=== PATIENT | male | born 1960 | race Caucasian/White ===

== ENCOUNTER 2017-04-16 03:51 | Emergency (ER) | payer OTHER ==
[~2017-04-16] VITALS: Ht 177.8 cm; Wt 132.0 kg
[~2017-04-16 03:51] MED LIST: ASPI81TA82 PO; CLOP75 PO; GLUCTAB PO; GLYB1TAB50 PO; HYDR-2768 PO; LEVEMIR PO; LIPI40TA PO; renexa PO
[2017-04-16 03:59] VITALS: BP 151/76; PULSE 79; RESP 12; TEMP 98.3; O2SAT 97
[2017-04-16] MEDS ORDERED: SODIUM CHLOR 0.9% 1000 ML INJ 1,000 ML IV SCH (04:18)
--- NOTE | 2017-04-16 04:21 | PD ---
HPI Chief Complaint: Flank/Kidney Pain Time Seen by Provider: 04:18 Travel History International Travel<30 days: No Contact w/Intl Traveler<30days: No Traveled to known affect area: No History of Present Illness HPI 57-year-old male with history of diabetes, hypertension, kidney stones, CAD, presents to the ER today because he has had 2 days history of left flank pains which worsened last night at around 2 AM. He states is currently a 4 out of 10. He does not know any exacerbating or alleviating factors. He had noticed some brown urine a few days ago as well. He denies any blood in the urine, fevers, vomiting, or any other symptoms. Modifying Factors: None Associated Signs & Symptoms: Left flank pain Risk Factors: Kidney stone history PFSH Past Medical History High Cholesterol: Yes Coronary Artery Disease: Yes Diabetes: Yes Immunizations Current: No Past Surgical History Cardiac Surgery: Yes (CARDIAC STENT) Coronary Stent: Yes (2008) Social History Alcohol Use: No Tobacco Use: No Substance Use: No Allergies-Medications (Allergen,Severity, Reaction): Coded Allergies: No Known Allergies (Unverified , 04/16/17) Reported Meds & Prescriptions Reported Meds & Active Scripts Active Reported Levemir (Insulin Detemir) Inj 12 Mg PO DAILY [renexa] 500 Mg PO BID Metformin Hcl (Metformin HCl) 500 Mg Tab 500 Mg PO BID Hctz (Hydrochlorothiazide) 25 Mg Tab 25 Mg PO DAILY Glyburide 2.5 Mg Tab 2.5 Mg PO DAILY Plavix (Clopidogrel Bisulfate) 75 Mg Tab 75 Mg PO DAILY Lipitor (Atorvastatin Calcium) 40 Mg Tab 40 Mg PO HS Aspir-81 (Aspirin) 81 Mg Tab 81 Mg PO DAILY Review of Systems Except as stated in HPI: all other systems reviewed are Neg Physical Exam Narrative GENERAL: Well-developed middle age white male patient currently in mild distress. Awake and oriented 3. SKIN: Focused skin assessment warm/dry. HEAD: Atraumatic. Normocephalic. EYES: Pupils equal and round. No scleral icterus. No injection or drainage. ENT: No nasal bleeding or discharge. Mucous membranes pink and moist. NECK: Trachea midline. No JVD. CARDIOVASCULAR: Regular rate and rhythm. No murmur appreciated. RESPIRATORY: No accessory muscle use. Clear to auscultation. Breath sounds equal bilaterally. GASTROINTESTINAL: Abdomen soft, mild left upper quadrant tenderness without guarding or rebound, nondistended. Hepatic and splenic margins not palpable. BACK: No CVA tenderness. No rash. No point tenderness on palpation of the spine. MUSCULOSKELETAL: No obvious deformities. No clubbing. No cyanosis. No edema. NEUROLOGICAL: Awake and alert. No obvious cranial nerve deficits. Motor grossly within normal limits. Normal speech. PSYCHIATRIC: Appropriate mood and affect; insight and judgment normal. Data Data Last Documented VS Vital Signs Date Time Temp Pulse Resp B/P Pulse Ox O2 Delivery O2 Flow Rate FiO2 04/16/17 04:54 69 20 173/75 98 04/16/17 03:59 98.3 Orders Complete Blood Count With Diff (04/16/17 04:18) Comprehensive Metabolic Panel (04/16/17 04:18) Lipase (04/16/17 04:18) Urinalysis - C+S If Indicated (04/16/17 04:18) Ct Abd/Pel W/O Iv Contrast (04/16/17 04:18) Iv Access Insert/Monitor (04/16/17 04:18) Ecg Monitoring (04/16/17 04:18) Oximetry (04/16/17 04:18) Sodium Chlor 0.9% 1000 Ml Inj (Ns 1000 M (04/16/17 04:18) Sodium Chloride 0.9% Flush (Ns Flush) (04/16/17 04:30) Ketorolac Inj (Toradol Inj) (04/16/17 04:30) Urine Culture (04/16/17 04:30) Labs Laboratory Tests Test 04/16/17 04:30 White Blood Count 9.9 TH/MM3 Red Blood Count 4.57 MIL/MM3 Hemoglobin 12.8 GM/DL Hematocrit 38.6 % Mean Corpuscular Volume 84.5 FL Mean Corpuscular Hemoglobin 27.9 PG Mean Corpuscular Hemoglobin 33.0 % Concent Red Cell Distribution Width 13.9 % Platelet Count 200 TH/MM3 Mean Platelet Volume 8.8 FL Neutrophils (%) (Auto) 70.7 % Lymphocytes (%) (Auto) 17.3 % Monocytes (%) (Auto) 10.4 % Eosinophils (%) (Auto) 1.2 % Basophils (%) (Auto) 0.4 % Neutrophils # (Auto) 7.1 TH/MM3 Lymphocytes # (Auto) 1.7 TH/MM3 Monocytes # (Auto) 1.0 TH/MM3 Eosinophils # (Auto) 0.1 TH/MM3 Basophils # (Auto) 0.0 TH/MM3 CBC Comment DIFF FINAL Differential Comment Urine Color CELENA Urine Turbidity CLEAR Urine pH 5.5 Urine Specific [place] 1.027 Urine Protein 30 mg/dL Urine Glucose (UA) 100 mg/dL Urine Ketones NEG mg/dL Urine Occult Blood SMALL Urine Nitrite NEG Urine Bilirubin NEG Urine Leukocyte Esterase NEG Urine RBC 15-19 /hpf Urine WBC 0-2 /hpf Urine Squamous Epithelial 0-5 /hpf Cells Urine Mucus FEW /lpf Microscopic Urinalysis Comment CULTURE INDICATED Sodium Level 139 MEQ/L Potassium Level 3.6 MEQ/L Chloride Level 104 MEQ/L Carbon Dioxide Level 26.8 MEQ/L Anion Gap 8 MEQ/L Blood Urea Nitrogen 17 MG/DL Creatinine 1.40 MG/DL Estimat Glomerular Filtration 52 ML/MIN Rate Random Glucose 160 MG/DL Calcium Level 8.5 MG/DL Total Bilirubin 0.8 MG/DL Aspartate Amino Transf 20 U/L (AST/SGOT) Alanine Aminotransferase 43 U/L (ALT/SGPT) Alkaline Phosphatase 74 U/L Total Protein 7.5 GM/DL Albumin 3.2 GM/DL Lipase 141 U/L MDM Medical Decision Making Medical Screen Exam Complete: Yes Emergency Medical Condition: Yes Medical Record Reviewed: Yes Interpretation(s) Laboratory Tests Test 04/16/17 04:30 Hemoglobin 12.8 GM/DL (13.0-17.0) Hematocrit 38.6 % (39.0-51.0) Neutrophils (%) (Auto) 70.7 % (16.0-70.0) Monocytes (%) (Auto) 10.4 % (0.0-8.0) Monocytes # (Auto) 1.0 TH/MM3 (0-0.9) Urine Color CELENA (YELLW/STRAW) Urine Protein 30 mg/dL (NEG-TRACE) Urine Glucose (UA) 100 mg/dL (NEG) Urine Occult Blood SMALL (NEG) Urine RBC 15-19 /hpf (0-3) Urine Mucus FEW /lpf (OCC) Creatinine 1.40 MG/DL (0.60-1.30) Estimat Glomerular Filtration 52 ML/MIN (>89) Rate Random Glucose 160 MG/DL (74-106) Albumin 3.2 GM/DL (3.4-5.0) Last 24 hours Impressions Abdomen/Pelvis CT 04/16/17 0418 Signed Impressions: Service Date/Time: Sunday, April 16, 2017 04:32 - CONCLUSION: Slight hydronephrosis in the left kidney due to an approximate 7 mm left proximal ureteral stone. Kulwinder Seo MD Differential Diagnosis Left flank painrenal colic versus pancreatitis versus musculoskeletal versus gastritis Narrative Course CAT scan reveals a 7 mm stone at the proximal ureter. Hydronephrosis noted. At this point, case was discussed with Dr. Hoffman who states that the patient can follow-up in his office this week. Patient's pain is fairly controlled at this point on Toradol. Lab work was otherwise unremarkable. My plan would be to release the patient with symptomatic relief or pain and follow-up to urology. Return for any worsening in symptoms as necessary. The plan has been discussed with the patient and he states understanding. Diagnosis Primary Impression: Renal colic on left side Med/Other Pt SpecificInfo: Prescription(s) given Scripts Hydrocodone-Acetaminophen (Lortab)5-325 Mg Tab1-2 Tab PO Q6H PRN (PAIN) #20 TAB Ref 0 Prov:Manpreet Cheema MD 04/16/17 Disposition: 01 DISCHARGE HOME Condition: Stable Manpreet Cheema MD April 16, 2017 04:21
[2017-04-16] MEDS ORDERED: KETOROLAC TROMETHAMINE 30 MG/ML (IVP) VIAL IVP ONE (04:30)
[2017-04-16] MEDS ORDERED: SODIUM CHLORIDE 0.9% FLUSH 10 ML FLUSH IV FLUSH PRN (04:30)
[2017-04-16 04:40] LABS: AUTOMATED NEUTROPHIL # 7.1 TH/MM3 (1.8-7.7); BASOPHIL % 0.4 % (0.0-2.0); EOSINOPHIL # 0.1 TH/MM3 (0-0.4); EOSINOPHIL % 1.2 % (0.0-4.0); HEMATOCRIT 38.6 % (39.0-51.0); LYMPH % 17.3 % (9.0-44.0); LYMPHOCYTE # 1.7 TH/MM3 (1.0-4.8); MEAN CELL VOLUME 84.5 FL (80.0-100.0); MEAN CORPUSCULAR HEMOGLOBIN 27.9 PG (27.0-34.0); MONO % 10.4 % (0.0-8.0); NEUT % 70.7 % (16.0-70.0); PLATELET COUNT 200 TH/MM3 (150-450); RED BLOOD COUNT 4.57 MIL/MM3 (4.50-5.90); RED CELL DISTRIBUTION WIDTH 13.9 % (11.6-17.2); WHITE BLOOD COUNT 9.9 TH/MM3 (4.0-11.0)
[2017-04-16 04:43] LABS: HEMO FLAGS DIFF FINAL
[2017-04-16 04:52] LABS: BLOOD, URINE SMALL (NEG); GLUCOSE,URINE 100 mg/dL (NEG); KETONE, URINE NEG (NEG); NITRITE,URINE NEG (NEG); PH, URINE 5.5 (5.0-8.5)
[2017-04-16 04:54] VITALS: BP 173/75; PULSE 69; RESP 20; O2SAT 98
[2017-04-16 05:01] LABS: CHLORIDE 104 MEQ/L (98-107); POTASSIUM 3.6 MEQ/L (3.5-5.1); SODIUM (NA) 139 MEQ/L (136-145)
--- NOTE | 2017-04-16 05:01 | RADHPO ---
EXAM DATE/TIME: 04/16/2017 04:32 [facility] COMPARISON: No previous studies available for comparison. INDICATIONS : Left flank pain for two days. ORAL CONTRAST: No oral contrast ingested. RADIATION DOSE: 23.19 CTDIvol (mGy) MEDICAL HISTORY : Diabetes mellitus type 2. SURGICAL HISTORY : None. ENCOUNTER: Initial ACUITY: 2 days PAIN SCALE: 4/10 LOCATION: Left flank TECHNIQUE: Volumetric scanning of the abdomen and pelvis was performed. Using automated exposure control and ad justment of the mA and/or kV according to patient size, radiation dose was kept as low as reasonably achievable to obtain optimal diagnostic quality images. FINDINGS: CT Abdomen: Approximate 7 mm left proximal ureteral stone is present with slight hydronephrosis. Yanna nary artery calcifications are seen typically seen with CAD and need to be evaluated clinically. The liver, spleen, pancreas, right kidney, adrenals are unremarkable. There is no evidence for any apprec iable pathological adenopathy, free fluid, or bowel obstruction. Chronic vascular calcifications are present involving the aorta, iliac arteries without any significant stenosis or aneurysmal dilatatio ns for technique. CT pelvis: There is no evidence for mass, abscess formation, or any significant adenopathy within the pelvis. Degenerative arthritis is present in the right hip joint to a moderate degree with degenerat alaina changes of lower lumbosacral spine. CONCLUSION: Slight hydronephrosis in the left kidney due to an approximate 7 mm left proximal ure teral stone. Kulwinder Seo MD on April 16, 2017 at 4:56 Board Certified Radiologist. This report was verified electronically.
[2017-04-16 05:05] LABS: ANION GAP 8 MEQ/L (5-15); BICARBONATE 26.8 MEQ/L (21.0-32.0); BLOOD UREA NITROGEN 17 MG/DL (7-18)
[2017-04-16 05:08] LABS: ALT (GPT) 43 U/L (12-78); AST (GOT) 20 U/L (15-37); GLOMERULAR FILTRATION RATE 52 ML/MIN (>89)
[2017-04-16 05:10] LABS: TOTAL BILIRUBIN ADULT 0.8 MG/DL (0.2-1.0)
[2017-04-16 05:11] LABS: ALKALINE PHOSPHATASE 74 U/L (45-117)
[2017-04-16 05:12] LABS: URINE COLOR AMBER (YELLW/STRAW)
[2017-04-16 05:13] LABS: MUCUS URINE FEW /lpf (OCC); SQUAMOUS EPITHELIAL CELL URINE 0-5 /hpf (0-5)
[2017-04-16 05:14] LABS: RBC, URINE 15-19 /hpf (0-3); WBC, URINE 0-2 /hpf (0-5)
[2017-04-16 05:15] LABS: COMMENT (UR) CULTURE INDICATED; CULTURE IF INDICATED CULTURE INDICATED
[2017-04-16] MEDS ORDERED: HYDR-3533 PO (05:22)
[2017-04-16 05:49] VITALS: BP 175/81
[2017-04-18] MEDS ORDERED: METF1000 PO (10:21)
[2017-04-18] MEDS ORDERED: RANO500 PO (10:21)
[2017-04-18] MEDS ORDERED: FLUTI110I INH (10:21)
[2017-04-18] MEDS ORDERED: LIPI40TA PO (10:21)
[2017-04-18] MEDS ORDERED: LISI40TA PO (10:21)
[2017-04-18] MEDS ORDERED: PLAV75TA29 PO (10:21)
[2017-04-18] MEDS ORDERED: AMLO10TA2 PO (10:21)
[2017-04-18] MEDS ORDERED: GLYB2.5T3 PO (10:21)
[2017-04-18] MEDS ORDERED: IBUP-232 PO (10:21)
[2017-04-18] MEDS ORDERED: ASPI1TAB69 PO (10:21)
[2017-04-18] MEDS ORDERED: ONDA4TAB7 SL (11:35)
[2017-04-18] MEDS ORDERED: OXYC1TAB63 PO (11:35)
[2017-04-24] MEDS ORDERED: ASPI81CH CHEW (16:00)
[2017-05-11] MEDS ORDERED: VIAG100T PO (11:20)
== END 2017-04-16 06:03 | disposition home or self-care (01) ==
LOC: PHED 03:51
DX: N23 Unspecified renal colic (principal); Z95.5 Presence of coronary angioplasty implant and graft; E11.9 Type 2 diabetes mellitus without complications; E78.00 Pure hypercholesterolemia, unspecified; N13.2 Hydronephrosis with renal and ureteral calculous obstruction
CPT/HCPCS: 74176; 80053; 81001; 83690; 85025; 87086; 96374; 99284; J1885; J7030

== ENCOUNTER → 2017-04-25 | Day surgery (SDC) | payer OTHER ==
[~2017-04-25] VITALS: Ht 177.8 cm; Wt 130.0 kg
[~2017-04-25] MED LIST changes: +AMLO10TA2 PO; +ASPI81CH CHEW; -ASPI81TA82 PO; +CHLORHEXIDINE GLUCONATE 2 % 1 PACK (2 CLOTHS) TOPICAL PRN; -CLOP75 PO; +DO NOT ADM ANY ANTICOAGULANT DRUGS PRN; +FAMOTIDINE 20 MG/2 ML VIAL ONE; +FLUTI110I INH; -GLUCTAB PO; -GLYB1TAB50 PO; +GLYB2.5T3 PO; -HYDR-2768 PO; +IBUP-232 PO; +INSULIN HUMAN REGULAR 1,000 UNITS/10 ML VIAL SQ PRN; +LACTATED RINGER'S 1000 ML IV PRN; -LEVEMIR PO; +LISI40TA PO; +METF1000 PO; +METOPROLOL TARTRATE 25 MG TAB PO PRN; +MIDAZOLAM HCL 2 MG/2 ML VIAL ONE; +MORPHINE SULFATE 4 MG/ML INJ IV PUSH PRN; +ONDA4TAB7 SL; +ONDANSETRON HCL 4 MG/2 ML VIAL IV PUSH PRN; +ONDANSETRON HCL 4 MG/2 ML VIAL ONE; +OXYC1TAB63 PO; +PLAV75TA29 PO; +POVIDONE IODINE 5% (ANTISEPSIS KIT) 4 APPLICATIONS EACH NARE PRN; +PROPOFOL 200 MG/20 ML AMP IV ONE; +RANO500 PO; +SODIUM CHLORID 0.9% 500 ML IV PRN; +VIAG100T PO; +fentaNYL CITRATE 250 MCG/5 ML AMP ONE; +oxyCODONE/ACETAMINOPHEN 5 MG/325 MG TAB PO PRN; -renexa PO
[2017-04-25 06:25] VITALS: BP 150/77; PULSE 76; RESP 18; TEMP 98.2; O2SAT 98
--- NOTE | 2017-04-25 08:28 | RADRPT ---
EXAM DATE/TIME: 04/25/2017 06:48 [facility] COMPARISON: CT Apr 16 2017 INDICATIONS : Renal calculi. Preoperative for left ESWL. MEDICAL HISTORY : Diabetes mellitus type II. Renal calculi. SURGICAL HISTORY : None. ENCOUNTER: Initial ACUITY: 2 weeks PAIN SCORE: 5/10 LOCATION: Left upper quadrant abdomen FINDINGS: Prior CT examination demonstrated a partially obstructing 7 mm left proximal ureteral stone. Current examination demonstrates a 6 mm calcified density in the left paraspinal region corresponding to the mid ureter. Multiple additional calcifications in the pelvis are consistent with phleboliths. There i s a nonobstructive bowel gas pattern with air noted throughout the colon. No gross free air or pneuma tosis. Osseous structures are grossly intact although there is severe right and moderate left degener ative osteoarthritis of the hips. CONCLUSION: 1. Previously demonstrated partially obstructing 7 mm left proximal ureteral stone appears to have m igrated to the mid left ureter region. 2. 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 Sandip Chaudhary MD on April 25, 2017 at 7:19 Board Certified Radiologist. This report was verified electronically.
--- NOTE | 2017-04-25 08:50 | EKG ---
Date Performed: 04/25/2017 Time Performed: 06:50:08 PTAGE: 57 years EKG: Sinus rhythm POSSIBLE RIGHT VENTRICULAR CONDUCTION DELAY BORDERLINE ECG NO PREVIOUS TRACING DOCTOR: Andrés Reid Interpretating Date/Time 04/25/2017 08:49:49
--- NOTE | 2017-04-25 09:53 | PD.OP ---
Operative Report Date of Surgery: April 25, 2017 Preoperative Diagnosis: 7 mm Left ureteral stone Postoperative Diagnosis: Same Procedure: Left extracorporeal shockwave lithotripsy Anesthesia: Gen. LMA Surgeon: Dangelo Hoffman Software Tools Developer(s): None Resident Surgeon: None Operation and Findings: 57-year-old male with findings of a 7 mm left proximal ureteral stone here today to undergo elective extracorporeal shockwave lithotripsy. Risk and benefits were discussed and he was willing to proceed. Patient is brought to the operating identify myself as Chintan Jenniferlexie. He was placed on the operating table in the supine position and received preprocedure antibiotics. General LMA anesthesia was administered. Under fluoroscopic imaging guidance the stone was localized to the area of the proximal left ureter. Patient underwent extraportal shockwave lithotripsy at a rate of 120 and a power level beginning at one and increased to level 20 over time. Good fragmentation of the stone was visualized and he tolerated the procedure well. He was extubated and transferred to the recovery room in stable condition. He will follow-up in 2 weeks and obtain a KUB x-ray prior. Dangelo Hoffman DO April 25, 2017 09:52
[2017-04-25 10:45] VITALS: BP 160/69; PULSE 78; RESP 18; O2SAT 96
== END | disposition home or self-care (01) ==
LOC: HSDC 06:18
PROVIDERS: ATTEND Urology
DX: N20.1 Calculus of ureter (principal); I10 Essential (primary) hypertension; E11.9 Type 2 diabetes mellitus without complications; I25.10 Atherosclerotic heart disease of native coronary artery without angina pectoris; E78.5 Hyperlipidemia, unspecified; G47.30 Sleep apnea, unspecified; Z95.5 Presence of coronary angioplasty implant and graft; Z79.82 Long term (current) use of aspirin; Z79.02 Long term (current) use of antithrombotics/antiplatelets
CPT/HCPCS: 50590; 74000; 93005; J2250; J2405; J3010; J7120